=== PATIENT | male | born 1965 | race Caucasian/White ===

== ENCOUNTER → 2018-05-20 | Emergency (ER) | payer BC ==
[2018-05-20] MEDS: KETOROLAC 30 MG INJ IM (18:54)
[2018-05-20] MEDS: HYDROmorphONE 2 MG/ML SYG IM (18:55)
[2018-05-20] MEDS: ONDANSETRON (ODT) 4 MG TAB ODT (19:23)
== END | disposition home or self-care (01) ==
LOC: E/R 18:42
DX: M54.41 Lumbago with sciatica, right side (principal)
CPT/HCPCS: 96372; 99284-25